=== PATIENT | female | born 1985 ===

== ENCOUNTER 2020-10-04 06:52 | Inpatient (IN) | payer BC ==
[2020-10-04 08:08] VITALS: BMI 22.8
[2020-10-04] MEDS ORDERED: Ibuprofen 800 MG TAB PO PRN (08:25)
[2020-10-04] MEDS ORDERED: Butorphanol Tartrate 1 MG/ML VIAL SLOW IVP PRN (08:25)
[2020-10-04] MEDS ORDERED: HYDROcodone/Acetaminophen 5/325 mg Tablet PO PRN ×3 (08:25→12:26)
[2020-10-04] MEDS ORDERED: Methylergonovine 0.2 MG/ML VIAL IM PRN (08:25)
[2020-10-04] MEDS ORDERED: Ondansetron PF 4 MG/2 ML Vial IVP PRN ×2 (08:25→12:26)
[2020-10-04] MEDS ORDERED: Lidocaine 1% (PF) 30 ML VIAL SC PRN (08:25)
[2020-10-04] MEDS ORDERED: Misoprostol 200 MCG TAB PR PRN (08:25)
[2020-10-04] MEDS ORDERED: hydrALAZINE 20 MG/ML VIAL SLOW IVP PRN ×2 (08:25→12:26)
[2020-10-04] MEDS ORDERED: NS / Oxytocin 40 units/1000ml 1,000 ML IV PRN (08:25)
[2020-10-04] MEDS ORDERED: Mineral Oil PER 1 ML TOP SCH (09:00)
[2020-10-04 09:21] LABS: Hemoglobin 13.9 g/dL (12.0-16.0); Mean Corpuscular HGB CONC 33.2 g/dL (32.0-36.0); Mean Corpuscular Hemoglobin 30.9 pg (27.0-31.0); Mean Platelet Volume 8.3 fL (7.4-10.4); Platelet Count 239 thou/uL (130-400); RBC Distribution Width 12.1 % (11.5-14.5); Red Blood Cell (RBC) Count 4.51 mill/uL (4.20-5.40); White Blood Cell (WBC) Count 15.6 thou/uL (4.8-10.8)
[2020-10-04 10:00] LABS: HBSAg Index 0.21 S/CO (0-0.99); Hep B Surf Ag Non-Reactive S/CO (NonReactive)
[2020-10-04 10:16] LABS: Syphilis Antibody Nonreactive (Nonreactive); Syphilis Antibody Index 0.03 S/CO (<1.00 Non-Reactive)
[2020-10-04] MEDS ORDERED: diphenhydrAMINE 25 MG CAP PO PRN (12:26)
[2020-10-04] MEDS ORDERED: Preparation H Ointment 28 GM TUBE PR PRN (12:26)
[2020-10-04] MEDS ORDERED: Bisacodyl 10 MG SUPP PR PRN (12:26)
[2020-10-04] MEDS ORDERED: Benzocaine-Menthol 82.5 ML CAN TOP PRN (12:26)
[2020-10-04] MEDS ORDERED: Misoprostol 200 MCG TAB VAG PRN (12:26)
[2020-10-04] MEDS ORDERED: Milk Of Magnesia 30 ML UDCUP PO PRN (12:26)
[2020-10-04] MEDS ORDERED: Adacel (T-DAP) 0.5 ML SYRINGE IM ONE (12:26)
[2020-10-04] MEDS ORDERED: Lanolin Ointment 7 GM TUBE TOP PRN (12:26)
[2020-10-04] MEDS ORDERED: Zolpidem Tartrate 5 MG TAB PO PRN (12:26)
[2020-10-04] MEDS ORDERED: Promethazine HCl 25 MG/ML VIAL IM PRN (12:26)
[2020-10-04] MEDS ORDERED: Acetaminophen 325 MG TAB PO PRN (12:28)
[2020-10-04] MEDS ORDERED: NS / Oxytocin 40 units/1000ml 1,000 ML IV SCH (12:30)
[2020-10-04] MEDS ORDERED: NS w/ Oxytocin 30 units 500 ML IV SCH ×2 (13:00)
[2020-10-04 16:09] LABS: SARS-CoV-2 MS2 Positive; SARS-CoV-2 N Gene Negative; SARS-CoV-2 S Gene Negative; SARS-CoV-2 by NAA Not Detected (NotDetected); SARS-CoV-2 orf1ab Negative
[2020-10-04] MEDS: Ibuprofen 800 MG TAB PO SCH ×2 (17:58→19:35)
[2020-10-04] MEDS: Ferrous Sulfate 325 MG TAB PO SCH (17:58)
[2020-10-04] MEDS: Docusate Calcium (SURFAK) 240 MG CAP PO SCH (19:36)
[2020-10-05] MEDS: Ibuprofen 800 MG TAB PO SCH ×2 (04:51→15:42)
[2020-10-05] MEDS: Ferrous Sulfate 325 MG TAB PO SCH (08:53)
[2020-10-05] MEDS: Docusate Calcium (SURFAK) 240 MG CAP PO SCH (08:54)
[2020-10-05] MEDS ORDERED: Prenatal Vitamin 1 TAB PO SCH (09:00)
[2020-10-05 11:55] VITALS: BP 105/68; TEMP 97.9
== END 2020-10-05 16:20 | disposition home or self-care (01) | DRG 807 ==
LOC: L&D/OP 06:52 → L&D-LIB 11:54 → 3SW 15:44
PROVIDERS: ADMIT Obstetrics & Gynecology; ATTEND Obstetrics & Gynecology
PROC: 10E0XZZ Delivery of Products of Conception, External Approach (ICD-10-PCS; principal; 2020-10-04)
PROC: 0KQM0ZZ Repair Perineum Muscle, Open Approach (ICD-10-PCS; 2020-10-04)
PROC: 0W8NXZZ Division of Female Perineum, External Approach (ICD-10-PCS; 2020-10-04)
DX: O70.1 Second degree perineal laceration during delivery (principal); Z37.0 Single live birth; Z3A.39 39 weeks gestation of pregnancy; Z20.822 Contact with and (suspected) exposure to COVID-19
CPT/HCPCS: 36415; 85027; 86780; 86850; 86900; 86901; 87340; 87635; J2001; U0003

== ENCOUNTER 2021-06-15 14:46 | Outpatient (CLI) | payer BC | END 2021-06-15 14:47 | disposition home or self-care (01) | LOC: SCSRAD 14:46 | PROVIDERS: ATTEND Nurse Practitioner Family | DX: Z97.5 Presence of (intrauterine) contraceptive device (principal) | CPT/HCPCS: 74019 ==